=== PATIENT | female | born 1995 | race Caucasian/White ===

== ENCOUNTER 2016-10-23 20:30 | Emergency (ER) | payer SELFPAY | END 2016-10-23 22:22 | disposition home or self-care (01) | LOC: FER 20:30 | DX: S93.492A Sprain of other ligament of left ankle, initial encounter (principal); M81.0 Age-related osteoporosis without current pathological fracture; Z79.899 Other long term (current) drug therapy; Z87.42 Personal history of other diseases of the female genital tract; W22.8XXA Striking against or struck by other objects, initial encounter; Y92.69 Other specified industrial and construction area as the place of occurrence of the external cause; Y99.0 Civilian activity done for income or pay | CPT/HCPCS: 73610; 99283 ==

== ENCOUNTER 2021-03-02 09:59 | Emergency (ER) | payer OTHER ==
[~2021-03-02 09:59] MED LIST: CALCIUM WITH V1 EAC1 PO; LODINE400 MG PO; PERCOCET 5-3251 EACH PO
[2021-03-02] MEDS ORDERED: NORCO 5-325 TA1 EACH PO ×2 (10:50→11:29)
== END 2021-03-02 11:45 | disposition home or self-care (01) ==
LOC: FER 09:59
DX: S80.12XA Contusion of left lower leg, initial encounter (principal); M25.511 Pain in right shoulder; J45.909 Unspecified asthma, uncomplicated; Z88.0 Allergy status to penicillin; V40.5XXA Car driver injured in collision with pedestrian or animal in traffic accident, initial encounter; Y92.410 Unspecified street and highway as the place of occurrence of the external cause
CPT/HCPCS: 73030; 73610